=== PATIENT | male | born 1940 | race Caucasian/White ===

== ENCOUNTER 2018-06-29 12:05 | Inpatient (IN) | payer MEDICARE ==
[~2018-06-29 12:05] MED LIST: METOPROLOL 5 MG INJ; ROCURONIUM 50 MG INJ; SUCCINYLCHOLINE CHLORIDE 100 MG/5 ML SYG IV
[2018-06-29] MEDS ORDERED: FENTAnyl 50 MCG/ML VIAL ×2 (13:13→17:11)
[2018-06-29] MEDS ORDERED: MIDAZOLAM 1 MG/ML 2 ML INJ (13:13)
[2018-06-29] MEDS ORDERED: LIDOCAINE 2% (SDV) 5 ML INJ (13:15)
[2018-06-29] MEDS ORDERED: PROPOFOL 20 ML (13:15)
[2018-06-29] MEDS ORDERED: CEFAZOLIN 1 GM INJ (13:16)
[2018-06-29] MEDS ORDERED: METOCLOPRAMIDE 10 MG INJ (13:17)
[2018-06-29] MEDS: IOHEXOL 300MG/ML 150 ML BTL (13:21)
[2018-06-29] MEDS ORDERED: DIPHENHYDRAMINE 50 MG INJ IV (15:00)
[2018-06-29] MEDS ORDERED: HYDROmorphONE 1 MG/5 ML IV SYRINGE IV ×2 (15:00)
[2018-06-29] MEDS ORDERED: LEVALBUTEROL (NEB) 1.25 MG/0.5 ML AMP HHN (15:00)
[2018-06-29] MEDS ORDERED: LABETALOL HCL 20MG INJ IV (15:00)
[2018-06-29] MEDS ORDERED: ONDANSETRON 4 MG INJ IV (15:00)
[2018-06-29] MEDS ORDERED: MEPERIDINE 25 MG INJ IV (15:00)
[2018-06-29] MEDS ORDERED: IPRATROPIUM (NEB) 0.5 MG/2.5 ML AMP HHN (15:00)
[2018-06-29] MEDS ORDERED: FENTAnyl 50 MCG/ML VIAL IV (15:00)
[2018-06-29] MEDS: HEPARIN 1000 UNITS/ML 10 ML INJ (16:02)
[2018-06-29] MEDS ORDERED: HEPARIN 1000 UNITS/ML 10 ML INJ (16:15)
[2018-06-29] MEDS ORDERED: hydrALAzine 20 MG INJ (17:14)
[2018-06-29] MEDS ORDERED: SUGAMMADEX SODIUM 200 MG/2 ML VIAL IV (17:41)
[2018-06-29] MEDS ORDERED: OXYCODONE/ACETAMINOPHEN (5/325) TAB PO (19:00)
[2018-06-29] MEDS ORDERED: HYDROmorphONE 1 MG/ML SYG IV (19:00)
[2018-06-29] MEDS: FENTAnyl 50 MCG/ML VIAL IV ×2 (19:06→19:15)
[2018-06-29] MEDS: hydrALAzine 20 MG INJ IV ×2 (19:07→19:23)
[2018-06-29 20:21] LABS: ADD UMIC YES; UR ASCORBIC ACID NEGATIVE (NEGATIVE); UR BACTERIA FEW /HPF (NONE SEEN); UR BILIRUBIN (Dip) NEGATIVE (NEGATIVE); UR BLOOD (Dip) 1+ mg/dL (NEGATIVE); UR CLARITY CLEAR (CLEAR); UR COLOR STRAW (YELLOW); UR GLUCOSE (Dip) NEGATIVE (NEGATIVE); UR KETONES (Dip) NEGATIVE (NEGATIVE); UR LEUKOCYTE ESTERASE (Dip) NEGATIVE Leu/ul (NEGATIVE); UR NITRITE (Dip) NEGATIVE (NEGATIVE); UR RBC 40 /HPF (0-5); UR SPECIFIC GRAVITY (Dip) 1.032 (1.003-1.030); UR TOTAL PROTEIN (Dip) 1+ mg/dl (NEGATIVE); UR UROBILINOGEN (Dip) NEGATIVE (NEGATIVE); UR WBC 0 /HPF (0-5)
[2018-06-29] MEDS: D5W-0.45 NACL + KCL 20 MEQ 1,000 ML IV (21:15)
[2018-06-30] MEDS: hydrALAzine 20 MG INJ IV ×2 (04:54→07:47)
[2018-06-30 05:55] LABS: ADD MAN DIFF? NO
[2018-06-30 06:05] LABS: BASOPHILS % 0.1 % (0.0-2.0); EOSINOPHILS % 0.1 % (0.0-7.0); HEMATOCRIT 30.9 % (42.0-52.0); HEMOGLOBIN 10.4 g/dl (14.0-18.0); LYMPHOCYTES # 0.8 10^3/ul (0.8-2.9); LYMPHOCYTES % 8.8 % (15.0-51.0); MEAN CORPUSCULAR HEMOGLOBIN 33.4 pg (29.0-33.0); MEAN CORPUSCULAR HGB CONC 33.7 g/dl (32.0-37.0); MEAN CORPUSCULAR VOLUME 99.4 fl (82.0-101.0); MEAN PLATELET VOLUME 11.9 fl (7.4-10.4); MONOCYTE # 0.7 10^3/ul (0.3-0.9); MONOCYTES % 7.5 % (0.0-11.0); NEUTROPHIL # 7.8 10^3/ul (1.6-7.5); NEUTROPHILS % 83.2 % (39.0-77.0); PLATELET COUNT 115 10^3/UL (140-415); RED BLOOD COUNT 3.11 10^6/ul (4.70-6.10)
[2018-06-30 06:05] LABS: WHITE BLOOD COUNT 9.3 10^3/ul (4.8-10.8)
[2018-06-30] MEDS: PANTOPRAZOLE (EC) 40 MG TAB PO (06:21)
[2018-06-30] MEDS: LEVOTHYROXINE 75 MCG TAB PO (06:21)
[2018-06-30 06:37] LABS: ANION GAP 10 (8-16); BLOOD UREA NITROGEN 15 mg/dl (7-20); CALCIUM 8.2 mg/dl (8.4-10.2); CARBON DIOXIDE 26 mmol/L (21-31); CHLORIDE 106 mmol/L (97-110); CREATININE 0.82 mg/dl (0.61-1.24); GLUCOSE 113 mg/dl (70-220); MAGNESIUM 1.6 mg/dl (1.7-2.5); POTASSIUM 3.8 mmol/L (3.5-5.1); SODIUM 138 mmol/L (135-144)
[2018-06-30] MEDS: CYANOCOBALAMIN 500 MCG TAB PO (08:08)
[2018-06-30] MEDS: LOSARTAN 50 MG TAB PO (08:08)
[2018-06-30] MEDS: FOLIC ACID 1 MG TAB PO (08:09)
[2018-06-30] MEDS: HYDROCHLOROTHIAZIDE 12.5 MG CAP PO (08:09)
[2018-06-30] MEDS: NIFEdipine (XL) 60 MG TAB PO (08:09)
[2018-06-30] MEDS: MAGNESIUM SULFATE 2 GM/50 ML 50 ML IVPB (09:26)
[2018-06-30] MEDS: DOXAZOSIN 4 MG TAB PO (20:33)
[2018-06-30] MEDS: CALCIUM/VITAMIN D (250/125) TAB PO (20:33)
[2018-07-01] MEDS: PANTOPRAZOLE (EC) 40 MG TAB PO (06:50)
[2018-07-01] MEDS: LEVOTHYROXINE 75 MCG TAB PO (06:50)
[2018-07-01 08:11] LABS: ADD MAN DIFF? NO
[2018-07-01] MEDS: HYDROCHLOROTHIAZIDE 12.5 MG CAP PO (08:17)
[2018-07-01] MEDS: CYANOCOBALAMIN 500 MCG TAB PO (08:17)
[2018-07-01] MEDS: LOSARTAN 50 MG TAB PO (08:18)
[2018-07-01] MEDS: NIFEdipine (XL) 60 MG TAB PO (08:18)
[2018-07-01] MEDS: FOLIC ACID 1 MG TAB PO (08:18)
[2018-07-01 08:24] LABS: WHITE BLOOD COUNT 9.4 10^3/ul (4.8-10.8)
[2018-07-01 08:24] LABS: BASOPHILS % 0.1 % (0.0-2.0); EOSINOPHILS % 0.2 % (0.0-7.0); HEMATOCRIT 30.6 % (42.0-52.0); HEMOGLOBIN 10.2 g/dl (14.0-18.0); LYMPHOCYTES # 0.9 10^3/ul (0.8-2.9); LYMPHOCYTES % 9.1 % (15.0-51.0); MEAN CORPUSCULAR HEMOGLOBIN 33.1 pg (29.0-33.0); MEAN CORPUSCULAR HGB CONC 33.3 g/dl (32.0-37.0); MEAN CORPUSCULAR VOLUME 99.4 fl (82.0-101.0); MEAN PLATELET VOLUME 11.9 fl (7.4-10.4); MONOCYTE # 1.2 10^3/ul (0.3-0.9); MONOCYTES % 12.3 % (0.0-11.0); NEUTROPHIL # 7.3 10^3/ul (1.6-7.5); NEUTROPHILS % 77.9 % (39.0-77.0); PLATELET COUNT 103 10^3/UL (140-415); POSITIVE DIFF @See below; RED BLOOD COUNT 3.08 10^6/ul (4.70-6.10); RED CELL DISTRIBUTION WIDTH 14.2 % (11.5-14.5)
[2018-07-01 08:46] LABS: ALANINE AMINOTRANSFERASE 33 IU/L (13-69); ALBUMIN 2.8 g/dl (3.3-4.9); ALBUMIN/GLOBULIN RATIO 0.96; ALKALINE PHOSPHATASE 46 IU/L (42-121); ANION GAP 10 (8-16); ASPARTATE AMINO TRANSFERASE 25 IU/L (15-46); BILIRUBIN,INDIRECT 1.2 mg/dl (0-1.1); BILIRUBIN,TOTAL 1.2 mg/dl (0.2-1.3); BLOOD UREA NITROGEN 18 mg/dl (7-20); CALCIUM 8.4 mg/dl (8.4-10.2); CARBON DIOXIDE 28 mmol/L (21-31); CHLORIDE 103 mmol/L (97-110); CREATININE 0.93 mg/dl (0.61-1.24); GLUCOSE 117 mg/dl (70-220); POTASSIUM 3.6 mmol/L (3.5-5.1); SODIUM 137 mmol/L (135-144); TOTAL PROTEIN 5.7 g/dl (6.1-8.1)
[2018-07-01 08:47] LABS: CHOL/HDL RATIO 1.8 RATIO; HDL CHOLESTEROL 50 mg/dl (31-75); LDL CHOLESTEROL,CALCULATED 32 mg/dl; MAGNESIUM 2.2 mg/dl (1.7-2.5); TRIGLYCERIDES 43 mg/dl (0-149)
[2018-07-01 08:47] LABS: CHOLESTEROL 91 mg/dl (100-200); PHOSPHORUS 2.7 mg/dl (2.5-4.9)
[2018-07-01] MEDS: ACETAMINOPHEN 325 MG TAB PO (16:12)
[2018-07-01] MEDS: ENOXAPARIN 40 MG/0.4 ML SYG SC (16:30)
[2018-07-01 17:36] LABS: ADD UMIC YES; UR ASCORBIC ACID NEGATIVE (NEGATIVE); UR BILIRUBIN (Dip) NEGATIVE (NEGATIVE); UR BLOOD (Dip) 1+ mg/dL (NEGATIVE); UR CLARITY CLEAR (CLEAR); UR COLOR YELLOW (YELLOW); UR GLUCOSE (Dip) NEGATIVE (NEGATIVE); UR KETONES (Dip) NEGATIVE (NEGATIVE); UR LEUKOCYTE ESTERASE (Dip) NEGATIVE Leu/ul (NEGATIVE); UR MUCUS FEW /HPF (NONE SEEN); UR NITRITE (Dip) NEGATIVE (NEGATIVE); UR RBC 1 /HPF (0-5); UR TOTAL PROTEIN (Dip) 1+ mg/dl (NEGATIVE); UR UROBILINOGEN (Dip) NEGATIVE (NEGATIVE); UR WBC 1 /HPF (0-5)
[2018-07-01 17:44] LABS: LACTIC ACID 0.9 mmol/L (0.5-2.0)
[2018-07-01] MEDS: CALCIUM/VITAMIN D (250/125) TAB PO (21:48)
[2018-07-01] MEDS: DOXAZOSIN 4 MG TAB PO (21:49)
[2018-07-02] MEDS: ACETAMINOPHEN 325 MG TAB PO ×2 (03:11→12:09)
[2018-07-02 06:11] LABS: ADD MAN DIFF? NO
[2018-07-02 06:14] LABS: WHITE BLOOD COUNT 9.3 10^3/ul (4.8-10.8)
[2018-07-02 06:14] LABS: ABNORMAL IP MESSAGE 1; BASOPHILS % 0.1 % (0.0-2.0); EOSINOPHILS % 0.2 % (0.0-7.0); HEMATOCRIT 28.6 % (42.0-52.0); HEMOGLOBIN 9.6 g/dl (14.0-18.0); LYMPHOCYTES # 0.8 10^3/ul (0.8-2.9); LYMPHOCYTES % 8.6 % (15.0-51.0); MEAN CORPUSCULAR HEMOGLOBIN 33.3 pg (29.0-33.0); MEAN CORPUSCULAR HGB CONC 33.6 g/dl (32.0-37.0); MEAN CORPUSCULAR VOLUME 99.3 fl (82.0-101.0); MEAN PLATELET VOLUME 11.7 fl (7.4-10.4); MONOCYTE # 1.1 10^3/ul (0.3-0.9); MONOCYTES % 11.9 % (0.0-11.0); NEUTROPHIL # 7.3 10^3/ul (1.6-7.5); NEUTROPHILS % 78.7 % (39.0-77.0); PLATELET COUNT 98 10^3/UL (140-415); POSITIVE DIFF @See below; RED BLOOD COUNT 2.88 10^6/ul (4.70-6.10)
[2018-07-02] MEDS: PANTOPRAZOLE (EC) 40 MG TAB PO (06:23)
[2018-07-02] MEDS: LEVOTHYROXINE 75 MCG TAB PO (06:23)
[2018-07-02 07:02] LABS: ALANINE AMINOTRANSFERASE 29 IU/L (13-69); ALBUMIN 2.8 g/dl (3.3-4.9); ALBUMIN/GLOBULIN RATIO 0.87; ALKALINE PHOSPHATASE 46 IU/L (42-121); ANION GAP 8 (8-16); ASPARTATE AMINO TRANSFERASE 24 IU/L (15-46); BILIRUBIN,INDIRECT 0.9 mg/dl (0-1.1); BILIRUBIN,TOTAL 0.9 mg/dl (0.2-1.3); CALCIUM 8.5 mg/dl (8.4-10.2); CARBON DIOXIDE 29 mmol/L (21-31); CHLORIDE 103 mmol/L (97-110); CREATININE 0.93 mg/dl (0.61-1.24); GLUCOSE 126 mg/dl (70-220); POTASSIUM 3.9 mmol/L (3.5-5.1); SODIUM 136 mmol/L (135-144)
[2018-07-02 07:06] LABS: PHOSPHORUS 2.3 mg/dl (2.5-4.9)
[2018-07-02 07:06] LABS: MAGNESIUM 2.2 mg/dl (1.7-2.5)
[2018-07-02 07:48] LABS: BLOOD UREA NITROGEN 21 mg/dl (7-20)
[2018-07-02] MEDS: FOLIC ACID 1 MG TAB PO (08:30)
[2018-07-02] MEDS: HYDROCHLOROTHIAZIDE 12.5 MG CAP PO (08:30)
[2018-07-02] MEDS: LOSARTAN 50 MG TAB PO (08:31)
[2018-07-02] MEDS: NIFEdipine (XL) 60 MG TAB PO (08:32)
[2018-07-02] MEDS: CYANOCOBALAMIN 500 MCG TAB PO (08:32)
[2018-07-02] MEDS: APIXABAN 5 MG TABLET PO (08:33)
== END 2018-07-02 14:50 | disposition home or self-care (01) | DRG 269 ==
LOC: TEL 07-01 00:19 → REC 12:05 → ICU 20:01
PROVIDERS: Thoracic Surgery (Cardiothoracic Vascular Surgery)
PROC: 04V03DZ Restriction of Abdominal Aorta with Intraluminal Device, Percutaneous Approach (ICD-10-PCS; principal; 2018-06-29 14:00)
PROC: 04VC3DZ Restriction of Right Common Iliac Artery with Intraluminal Device, Percutaneous Approach (ICD-10-PCS; 2018-06-29 14:00)
PROC: 04VD3DZ Restriction of Left Common Iliac Artery with Intraluminal Device, Percutaneous Approach (ICD-10-PCS; 2018-06-29 14:00)
DX: I71.4 Abdominal aortic aneurysm, without rupture (principal); I25.10 Atherosclerotic heart disease of native coronary artery without angina pectoris; I10 Essential (primary) hypertension; I48.0 Paroxysmal atrial fibrillation; E03.9 Hypothyroidism, unspecified; E11.9 Type 2 diabetes mellitus without complications; E78.5 Hyperlipidemia, unspecified; D64.9 Anemia, unspecified; K86.89 Other specified diseases of pancreas; M10.9 Gout, unspecified; M06.9 Rheumatoid arthritis, unspecified; M54.5 Low back pain; N40.0 Benign prostatic hyperplasia without lower urinary tract symptoms; Z95.1 Presence of aortocoronary bypass graft; Z87.891 Personal history of nicotine dependence; Z79.02 Long term (current) use of antithrombotics/antiplatelets; Z79.84 Long term (current) use of oral hypoglycemic drugs
CPT/HCPCS: 71045; 75625; 80048; 80053; 80061; 81001; 82962; 83605; 83735; 84100; 85025; 86850; 86900; 86901; 86920; 87040; 87086; 93970

== ENCOUNTER 2018-10-12 11:10 | Day surgery (SDC) | payer MEDICARE ==
[2018-10-12] MEDS ORDERED: PROPOFOL 20 ML (12:53)
== END 2018-10-12 13:44 | disposition home or self-care (01) ==
LOC: GIL 11:10
DX: Z12.11 Encounter for screening for malignant neoplasm of colon (principal); K57.30 Diverticulosis of large intestine without perforation or abscess without bleeding; Z86.010 Personal history of colon polyps
CPT/HCPCS: 45378